=== PATIENT | male | born 2000 | race Caucasian/White ===

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

== ENCOUNTER 2020-06-25 18:59 | Emergency (ER) | payer OTHER, MEDICAID ==
[~2020-06-25] VITALS: Ht 193 cm; Wt 90.7 kg
[2020-06-25] MEDS ORDERED: ONDANSETRON 4 MG/2 ML (SDV) Z0FRAN IVP ONE (19:30)
[2020-06-25] MEDS ORDERED: PANTOPRAZOLE 40 MG (PROTONIX) VIAL IV ONE (19:30)
[2020-06-25] MEDS ORDERED: ACETAMINOPHEN 500 MG TAB (TYLENOL) PO ONE (19:30)
[2020-06-25] MEDS ORDERED: LACTATED RINGERS 1,000 ML IV ONE (19:30)
[2020-06-25] MEDS ORDERED: FAMOTIDINE 20MG/2ML IV (PEPCID) IVP ONE (19:30)
[2020-06-25 19:45] LABS: BASOPHILS % (AUTO) 1 % (0-10); EOSINOPHILS % (AUTO) 0 % (0-10); HEMATOCRIT 45 % (40-54); HEMOGLOBIN 15.5 g/dL (13.3-17.7); LYMPHOCYTES # (AUTO) 1.4 10^3/uL (1.0-4.0); LYMPHOCYTES % (AUTO) 29 % (12-44); MEAN CORPUSCULAR HEMOGLOBIN 29 pg (25-34); MEAN CORPUSCULAR HGB CONC 34 g/dL (32-36); MEAN CORPUSCULAR VOLUME 85 fL (80-99); MEAN PLATELET VOLUME 11.6 fL (9.0-12.2); MONOCYTES # (AUTO) 0.9 10^3/uL (0.0-1.0); MONOCYTES % (AUTO) 19 % (0-12); NEUTROPHILS # (AUTO) 2.5 10^3/uL (1.8-7.8); NEUTROPHILS % (AUTO) 50 % (42-75); PLATELET COUNT 155 10^3/uL (130-400); WHITE BLOOD COUNT 4.9 10^3/uL (4.3-11.0)
[2020-06-25] MEDS ORDERED: BENZONATATE 100 MG (TESSALON) CAPSULE PO ONE (19:45)
[2020-06-25 20:02] LABS: FIBRIN DEGRADATION PRODUCTS 0.32 UG/ML (0.00-0.49); INR 1.1 (0.8-1.4); PROTHROMBIN TIME PATIENT 14.1 SEC (12.2-14.7)
[2020-06-25 20:05] LABS: ALANINE AMINOTRANSFERASE 9 U/L (0-55); ALBUMIN 4.2 GM/DL (3.2-4.5); ALKALINE PHOSPHATASE 65 U/L (40-136); BILIRUBIN,TOTAL 0.3 MG/DL (0.1-1.0); BUN/CREATININE RATIO 8; CALCIUM 8.8 MG/DL (8.5-10.1); CARBON DIOXIDE 23 MMOL/L (21-32); CHLORIDE 107 MMOL/L (98-107); CREATININE SERUM 1.05 MG/DL (0.60-1.30); GFR ESTIMATED > 60; GLUCOSE 104 MG/DL (70-105); LIPASE 19 U/L (8-78); MAGNESIUM 2.3 MG/DL (1.6-2.4); POTASSIUM 3.9 MMOL/L (3.6-5.0); SODIUM 141 MMOL/L (135-145); TOTAL PROTEIN 6.8 GM/DL (6.4-8.2)
--- NOTE | 2020-06-25 20:07 | Diagnostic Imaging Report ---
Indication: Dyspnea and Covid infection Single AP view of the chest is obtained. COMPARISON: No previous study is available for comparison at this time. FINDINGS: Heart size and pulmonary vasculature are within normal limits, and the lungs are clear, bilaterally. IMPRESSION: Unremarkable chest. Dictated by: Dictated on workstation # [id number]
[2020-06-25 20:11] LABS: EOSINOPHILS % (MANUAL) 1 %; LYMPHOCYTES % (MANUAL) 26 %; MONOCYTES % (MANUAL) 13 %; NEUTROPHILS % (MANUAL) 60 %
[2020-06-25 20:12] LABS: RBC MORPH NORMAL
[2020-06-25] MEDS ORDERED: OMEP20TA7 PO (20:30)
[2020-06-25] MEDS ORDERED: BENZ100C18 PO (20:30)
[2020-06-25] MEDS ORDERED: ONDA4TAB11 SL (20:30)
[2020-06-25] MEDS ORDERED: RX-ONDANSETRON 4 MG ODT (ZOFRAN) PPK #4 SL STA (20:30)
--- NOTE | 2020-06-25 20:30 | ED General ---
General Chief Complaint: Cough/Cold/Flu Symptoms Stated Complaint: COVID POSITIVE/VOMITING BLOOD/SOB Source of Information: Patient Exam Limitations: No Limitations History of Present Illness Date Seen by Provider: Jun 25, 2020 Time Seen by Provider: 19:13 Initial Comments This 19-year-old young man presents to the emergency room with complaints of coughing up or vomiting blood. He has COVID-19 and has been symptomatic for about 6 days. He complains of shortness of breath. He reports noting streaks of blood in his emesis eating food his friend brought him tonight. Vital signs are stable. He is febrile at this time. He has a little bit of left upper quadrant discomfort. He reports cough and nausea disrupt his sleep. He also complains of a maculopapular rash on his upper extremities. He does not know what this is. His only new medication is a "mucus medicine". Allergies and Home Medications Allergies Coded Allergies: methylphenidate (Verified Allergy, Unknown, 08/10/17) Home Medications Atomoxetine HCl 80 Mg Capsule, 80 MG PO DAILY, (Reported) Benzonatate 100 Mg Capsule, 200 MG PO TID PRN for COUGH Prescribed by: SAMIR BARRAGAN on 06/25/202029 Cetirizine HCl 10 Mg Capsule, 10 MG PO DAILY, (Reported) Guanfacine HCl 1 Mg Tablet, 1 MG PO BID, (Reported) Lurasidone HCl 40 Mg Tablet, 40 MG PO HS, (Reported) Mometasone Furoate 17 Gm Naspr, 1 SPRAY NSEACH DAILY, (Reported) Omeprazole 20 Mg Tablet.dr, 20 MG PO BID Prescribed by: SAMIR BARRAGAN on 06/25/202029 Ondansetron 4 Mg Tab.rapdis, 4 MG SL Q4H PRN for NAUSEA/VOMITING Prescribed by: SAMIR BARRAGAN on 06/25/202029 Oxcarbazepine 600 Mg Tablet, 600 MG PO DAILY, (Reported) TAKES 600MG IN THE AM AND 900 MG AT HS Oxcarbazepine 600 Mg Tablet, 900 MG PO HS, (Reported) TAKES 600MG IN THE AM AND 900 MG AT HS Patient Home Medication List Home Medication List Reviewed: Yes Review of Systems Review of Systems Constitutional: no symptoms reported EENTM: no symptoms reported Respiratory: see HPI Cardiovascular: no symptoms reported Gastrointestinal: see HPI Genitourinary: no symptoms reported Musculoskeletal: no symptoms reported Skin: no symptoms reported Psychiatric/Neurological: No Symptoms Reported Hematologic/Lymphatic: No Symptoms Reported Immunological/Allergic: no symptoms reported Past Imdjvgz-Jaeerm-Tudegh Hx Past Med/Social Hx: Reviewed Nursing Past Med/Soc Hx Immunizations Up To Date PED Vaccines UTD: Yes Seasonal Allergies Seasonal Allergies: Yes Past Medical History Surgeries: Yes (T&A, POST OP TONSIL BLEED, HYDROCELE HERNIA REPAIR X2) Respiratory: No Cardiac: No Neurological: No Genitourinary: No Gastrointestinal: No Musculoskeletal: No Endocrine: No Tonsilitis Cancer: No Psychosocial: Yes ADD/ADHD, ODD, PTSD Integumentary: No Blood Disorders: No Family Medical History Autism G8 BROTHER FH: ADHD (attention deficit hyperactivity disorder) G8 BROTHER Headache disorder 19 MOTHER G8 SISTER Hypertension 19 MOTHER Physical Exam Vital Signs Vital Signs - First Documented 06/25/20 19:49 Temp 38.2 Capillary Refill : Height, Weight, BMI Height: 6'2.00" Weight: 217lbs. 9.0oz. [id number]; 27.9 BMI Method: General Appearance: No Apparent Distress, WD/WN HEENT: PERRL/EOMI, Normal ENT Inspection, Pharyngeal Erythema Neck: Normal Inspection, Non Tender Respiratory: Lungs Clear, No Accessory Muscle Use, No Respiratory Distress, Decreased Breath Sounds Cardiovascular: Regular Rate, Rhythm, No Murmur, Normal Peripheral Pulses Gastrointestinal: Normal Bowel Sounds, Soft, Tenderness (Slight in the left up per quadrant) Extremity: Normal Inspection, No Pedal Edema Neurologic/Psychiatric: Alert, Oriented x3, No Motor/Sensory Deficits, Normal Mood/Affect, tire setter II-XII Norm as Tested Skin: Normal Color, Warm/Dry Progress/Results/Core Measures Suspected Sepsis SIRS Temperature: Pulse: Respiratory Rate: Laboratory Tests 06/25/20 19:35: White Blood Count 4.9 Blood Pressure / Mean: Laboratory Tests 06/25/20 19:35: Creatinine 1.05, INR Comment 1.1, Platelet Count 155, Total Bilirubin 0.3 Results/Orders Lab Results Laboratory Tests Test 06/25/20 19:23 06/25/20 19:35 Range/Units Group A Streptococcus Screen NEGATIVE NEGATIVE White Blood Count 4.9 4.3-11.0 10^3/uL Red Blood Count 5.31 4.30-5.52 10^6/uL Hemoglobin 15.5 13.3-17.7 g/dL Hematocrit 45 40-54 % Mean Corpuscular Volume 85 80-99 fL Mean Corpuscular Hemoglobin 29 25-34 pg Mean Corpuscular Hemoglobin Concent 34 32-36 g/dL Red Cell Distribution Width 12.0 10.0-14.5 % Platelet Count 155 130-400 10^3/uL Mean Platelet Volume 11.6 9.0-12.2 fL Immature Granulocyte % (Auto) 0 % Neutrophils (%) (Auto) 50 42-75 % Lymphocytes (%) (Auto) 29 12-44 % Monocytes (%) (Auto) 19 H 0-12 % Eosinophils (%) (Auto) 0 0-10 % Basophils (%) (Auto) 1 0-10 % Neutrophils # (Auto) 2.5 1.8-7.8 10^3/uL Lymphocytes # (Auto) 1.4 1.0-4.0 10^3/uL Monocytes # (Auto) 0.9 0.0-1.0 10^3/uL Eosinophils # (Auto) 0.0 0.0-0.3 10^3/uL Basophils # (Auto) 0.0 0.0-0.1 10^3/uL Immature Granulocyte # (Auto) 0.0 0.0-0.1 10^3/uL Neutrophils % (Manual) 60 % Lymphocytes % (Manual) 26 % Monocytes % (Manual) 13 % Eosinophils % (Manual) 1 % Platelet Estimate Blood Morphology Comment NORMAL Prothrombin Time 14.1 12.2-14.7 SEC INR Comment 1.1 0.8-1.4 Activated Partial Thromboplast Time 36 H 24-35 SEC D-Dimer 0.32 0.00-0.49 UG/ML Sodium Level 141 135-145 MMOL/L Potassium Level 3.9 3.6-5.0 MMOL/L Chloride Level 107 98-107 MMOL/L Carbon Dioxide Level 23 21-32 MMOL/L Anion Gap 11 5-14 MMOL/L Blood Urea Nitrogen 8 7-18 MG/DL Creatinine 1.05 0.60-1.30 MG/DL Estimat Glomerular Filtration Rate > 60 BUN/Creatinine Ratio 8 Glucose Level 104 70-105 MG/DL Calcium Level 8.8 8.5-10.1 MG/DL Corrected Calcium 8.6 8.5-10.1 MG/DL Magnesium Level 2.3 1.6-2.4 MG/DL Total Bilirubin 0.3 0.1-1.0 MG/DL Aspartate Amino Transf (AST/SGOT) 15 5-34 U/L Alanine Aminotransferase (ALT/SGPT) 9 0-55 U/L Alkaline Phosphatase 65 40-136 U/L C-Reactive Protein High Sensitivity 1.38 H 0.00-0.50 MG/DL Total Protein 6.8 6.4-8.2 GM/DL Albumin 4.2 3.2-4.5 GM/DL Lipase 19 8-78 U/L Procalcitonin 0.04 <0.10 NG/ML My Orders Orders - SAMIR CHAVARRIA MD Cbc With Automated Diff (06/25/20 19:13) Comprehensive Metabolic Panel (06/25/20 19:13) Hs C Reactive Protein (06/25/20 19:13) Protime With Inr (06/25/20 19:13) Partial Thromboplastin Time (06/25/20 19:13) Chest 1 View, Ap/Pa Only (06/25/20 19:13) Ed Iv/Invasive Line Start (06/25/20 19:13) Pantoprazole Injection (Protonix Injecti (06/25/20 19:30) Famotidine Injection (Pepcid Injection) (06/25/20 19:30) Ondansetron Injection (Zofran Injectio (06/25/20 19:30) Acetaminophen Tablet (Tylenol Tablet) (06/25/20 19:30) Lactated Ringers (Lr 1000 Ml Iv Solution (06/25/20 19:30) Fibrin Degradation Products (06/25/20 19:29) Lipase (06/25/20 19:29) Magnesium (06/25/20 19:29) Procalcitonin (Pct) (06/25/20 19:29) Benzonatate Capsule (Tessalon Perles) (06/25/20 19:45) Manual Differential (06/25/20 19:35) Rapid Strep A Screen (06/25/20 19:51) Rx-Ondansetron Po (Rx-Zofran Po) (06/25/20 20:30) Medications Given in ED Current Medications Medications Dose Ordered Sig/Jeff Route Start Time Stop Time Status Last Admin Dose Admin Acetaminophen 1,000 mg ONCE ONCE PO 06/25/20 19:30 06/25/20 19:31 DC 06/25/20 19:49 1,000 MG Benzonatate 200 mg ONCE ONCE PO 06/25/20 19:45 06/25/20 19:46 DC 06/25/20 19:53 200 MG Famotidine 20 mg ONCE ONCE IVP 06/25/20 19:30 06/25/20 19:31 DC 06/25/20 19:42 20 MG Lactated Ringer's 1,000 ml @ 0 mls/hr Q0M ONCE IV 06/25/20 19:30 06/25/20 19:31 DC 06/25/20 19:39 1,000 MLS/HR Ondansetron HCl 8 mg ONCE ONCE IVP 06/25/20 19:30 06/25/20 19:31 DC 06/25/20 19:42 8 MG Pantoprazole 40 mg ONCE ONCE IV 06/25/20 19:30 06/25/20 19:31 DC 06/25/20 19:42 40 MG Vital Signs/I&O 06/25/20 19:49 Temp 38.2 Capillary Refill : Progress Note : Progress Note Patient was hydrated with a liter of IV fluid. Tylenol was given for fever. GI symptoms were treated with Protonix, Pepcid, and Zofran. There is no further emesis in the ER. Labs were unremarkable. Chest x-ray was also unremarkable. Rash may be a viral exanthem or, less likely, reaction to his "mucous medicine". I have advised him to take Benadryl if it is itchy and avoid the mucous medicine. Diagnostic Imaging Diagonstic Imaging: Xray Plain Films/CT/US/NM/MRI: chest Comments NAME: GIOVANNI GALLEGOS [facility] REC#: [id number] PT STATUS: REG ER : 2000 PHYSICIAN: SAMIR CHAVARRIA MD ADMIT DATE: 06/25/20/ER Signed Date of Exam:06/25/20 CHEST 1 VIEW, AP/PA ONLY Indication: Dyspnea and Covid infection Single AP view of the chest is obtained. COMPARISON: No previous study is available for comparison at this time. FINDINGS: Heart size and pulmonary vasculature are within normal limits, and the lungs are clear, bilaterally. IMPRESSION: Unremarkable chest. Dictated by: Dictated on workstation # [id number] Dict: 06/25/202005 Trans: 06/25/202005 [id number] Interpreted by: THIERRY CHENG MD Electronically signed by: THIERRY CHENG MD 06/25/202005 Reviewed: Reviewed by Me Departure Impression Primary Impression: COVID-19 Additional Impressions: Hematemesis Qualified Codes: K92.0 - Hematemesis Rash Disposition: HOME, SELF-CARE Condition: Improved Departure-Patient Inst. Decision time for Depature: 20:27 Referrals: MARY BARRAGAN MD (PCP/Family) Primary Care Physician Patient Instructions: COVID19 Add. Discharge Instructions: Start with a noncarbonated clear liquid diet and gradually advance your diet with small quantities of bland food as tolerated. Please drink plenty of clear liquids. Use omeprazole as prescribed twice daily for the next 2 weeks. Continue to take this medication even if you are feeling better. Please take Zofran (ondansetron) dissolved under the tongue every 4 hours as needed for nausea and vomiting. Call with questions or concerns. Return to the emergency room if you have worsening condition or if you continue to vomit blood. Follow-up with your primary care provider soon as you are off quarantine. Continue to follow health department instructions for quarantine. Avoid use of NSAID medications such as ibuprofen, Aleve, naproxen, etc. Instead take Tylenol (acetaminophen) up to 1000 mg every 6 hours as needed. All discharge instructions reviewed with patient and/or family. Voiced und erstanding. Scripts Benzonatate (TESSALON PERLES) 100 Mg Capsule 200 MG PO TID PRN for COUGH, #20 CAP Prov: SAMIR CHAVARRIA MD 06/25/20 Ondansetron (Ondansetron Odt) 4 Mg Tab.rapdis 4 MG SL Q4H PRN for NAUSEA/VOMITING, #10 TAB Prov: SAMIR CHAVARRIA MD 06/25/20 Omeprazole (Omeprazole) 20 Mg Tablet.dr 20 MG PO BID, #30 TAB Prov: SAMIR CHAVARRIA MD 06/25/20 SAMIR CHAVARRIA MD Jun 25, 2020 20:30
[2020-06-25 20:40] VITALS: BP 132/87
== END 2020-06-25 20:40 | disposition home or self-care (01) ==
LOC: EDUNIT# 18:59 → ER 19:03
DX: U07.1 COVID-19 (principal); K92.0 Hematemesis; F90.9 Attention-deficit hyperactivity disorder, unspecified type; Z82.49 Family history of ischemic heart disease and other diseases of the circulatory system
CPT/HCPCS: 36415; 71045; 80053; 83690; 83735; 84145; 85007; 85027; 85379; 85610; 85730; 86141; 87430

== ENCOUNTER 2020-07-05 10:42 | Emergency (ER) | payer OTHER, MEDICAID ==
[~2020-07-05] VITALS: Ht 193 cm; Wt 82.0 kg
[~2020-07-05 10:42] MED LIST changes: +BENZ100C18 PO; +OMEP20TA7 PO; +ONDA4TAB11 SL
--- NOTE | 2020-07-05 11:06 | ED Integumentary General ---
General Chief Complaint: Skin/Wound Problems Stated Complaint: R BREAST CYST Source: patient Exam Limitations: no limitations (BOWEN ARENAS) History of Present Illness Date Seen by Provider: Jul 05, 2020 Time Seen by Provider: 10:55 Initial Comments Pt here by private vehicle for a right breast cyst present for about a week getting larger over that time. He reports it is very painful and hurts when he takes deep breaths and rides in the car. He states that last night his friend tried to pop it with a needle and squeezing it, but they were unsuccessful. He states that a small amount of white puss did come out. He denies any fever, chills, cough, shortness of breath, or other symptoms. Timing/Duration: week Severity: moderate Location: torso (Right chest just lateral to nipple) Possible Cause: no cause identified Associated Symptoms: No fever; rash (redness around area) (BOWEN ARENAS) Allergies and Home Medications Allergies Coded Allergies: methylphenidate (Verified Allergy, Unknown, 08/10/17) Home Medications No Active Prescriptions or Reported Meds Patient Home Medication List Home Medication List Reviewed: Yes (TED PAREKH APRN) Review of Systems Review of Systems Constitutional: No chills, No fever EENTM: No nose congestion, No throat pain Respiratory: No cough, No dyspnea on exertion, No short of breath Cardiovascular: chest pain (at site of lesion); No edema Gastrointestinal: No abdominal pain, No constipation, No diarrhea, No nausea, No vomiting Genitourinary: No dysuria, No hematuria Musculoskeletal: No back pain, No muscle weakness Skin: change in color (Eryhtema around lesion), lesions (Right breast area) Psychiatric/Neurological: Denies Headache, Denies Numbness, Denies Paresthesia, Denies Tingling (BOWEN ARENAS) Past Flquxjm-Raniga-Ywvlyu Hx Patient Social History Alcohol Use: Denies Use Smoking Status: Never a Smoker Recent Hopitalizations: No (T&A 07/30/27) (BOWEN ARENAS) Immunizations Up To Date PED Vaccines UTD: Yes ([place]OW[place]NAS) Seasonal Allergies Seasonal Allergies: Yes (BOWEN ARENAS) Past Medical History Surgeries: Yes (T&A, POST OP TONSIL BLEED, HYDROCELE HERNIA REPAIR X2) Respiratory: No Cardiac: No Neurological: No Genitourinary: No Gastrointestinal: No Musculoskeletal: No Endocrine: No HEENT: No Tonsilitis Cancer: No Psychosocial: Yes ADD/ADHD, ODD, PTSD Integumentary: No Blood Disorders: No (BOWEN ARENAS) Family Medical History Autism G8 BROTHER FH: ADHD (attention deficit hyperactivity disorder) G8 BROTHER Headache disorder 19 MOTHER G8 SISTER Hypertension 19 MOTHER Physical Exam Vital Signs Vital Signs - First Documented 07/05/20 10:50 Temp 36.9 Pulse 87 Resp 18 B/P (MAP) 138/83 (TED PAREKH APRN) Vital Signs Capillary Refill : ([place]NAS) General Appearance: WD/WN, no apparent distress HEENT: PERRL/EOMI, pharynx normal Neck: non-tender, full range of motion Cardiovascular: normal peripheral pulses, regular rate, rhythm Respiratory: lungs clear, normal breath sounds, no respiratory distress Gastrointestinal: non tender, soft Back: normal inspection, no CVA tenderness, no vertebral tenderness Extremities: normal range of motion, non-tender, normal inspection, no pedal edema, no calf tenderness Neurologic/Psychiatric: no motor/sensory deficits, alert, normal mood/affect, oriented x 3 Skin: warm/dry, other (Erythema around R nipple area) Skin Problem Location: torso Skin Problem Character: abscess, erythema, warm ([place]NAS) Progress/Results/Core Measures Results/Orders My Orders Orders - TED PAREKH APRN Wound Culture (07/05/20 11:17) (TED PAREKH APRN) Vital Signs/I&O 07/05/20 10:50 Temp 36.9 Pulse 87 Resp 18 B/P (MAP) 138/83 (TED PAREKH APRN) Progress Progress Note : Progress Note 1100: Pt has abscess at right nipple area, plan I/D with antibiotics on discharge ([place]NAS) Departure Communication (Admissions) I have seen the patient as well, he has an abscess to the 9 o'clock position of the right breast at the areolar border. There are some minor cellulitis changes and swelling. He has no systemic symptoms. We did incision and drainage of this. The area was anesthetized with 1% lidocaine without epinephrine buffered with sodium bicarbonate in a 1:3 ratio. We then made an incision with 11 blade scalpel and a small amount of purulent almost sebaceous appearing material was expressed. Loculations were broken up with a blunt end of a Q-tip. Culture was collected. Covered with gauze. We will put him on doxycycline. (TED PAREKH APRN) Impression Primary Impression: Breast abscess Disposition: 01 HOME, SELF-CARE Condition: Stable Departure-Patient Inst. Decision time for Depature: 11:29 (TED PAREKH APRN) Referrals: MARY BARRAGAN MD (PCP/Family) Primary Care Physician Patient Instructions: Abscess Incision and Drainage (DC) Add. Discharge Instructions: 1. Tylenol and ibuprofen for pain. Change the dressing as it becomes soaked with blood. This will be a couple of times a day and will taper off over the next few days. Take the antibiotics as directed. They have been sent to [facility]. All discharge instructions reviewed with patient and/or family. Voiced understanding. Scripts Doxycycline Hyclate (Doxycycline Hyclate) 100 Mg Tablet 100 MG PO BID, #14 TAB 0 Refills Prov: TED PAREKH APRN 07/05/20 Copy Copies To 1: [facility]AN [facility] Jul 05, 2020 11:06 TED PAREKH APRN Jul 05, 2020 11:32
[2020-07-05] MEDS ORDERED: DOXY100T2 PO (11:30)
== END 2020-07-05 11:38 | disposition home or self-care (01) ==
LOC: EDUNIT# 10:42 → ER 10:43
DX: N61.1 Abscess of the breast and nipple (principal); Z88.8 Allergy status to other drugs, medicaments and biological substances; Z82.49 Family history of ischemic heart disease and other diseases of the circulatory system
CPT/HCPCS: 10060; 87070; 87077; 87205

== ENCOUNTER 2020-10-25 18:29 | Emergency (ER) | payer OTHER, MEDICAID ==
[~2020-10-25] VITALS: Ht 193 cm; Wt 93.4 kg
[~2020-10-25 18:29] MED LIST changes: +DOXY100T2 PO
--- NOTE | 2020-10-25 18:41 | ED Abdominal Pain ---
General Chief Complaint: Abdominal/GI Problems Stated Complaint: LLQ PAIN Source of Information: Patient Exam Limitations: No Limitations History of Present Illness Date Seen by Provider: October 25, 2020 Time Seen by Provider: 18:39 Initial Comments To ER by private vehicle with left lateral chest wall pain for about a month. He has had a cough and pain is worse with deep breathing. No shortness of breath. Timing/Duration: 1-2 Days Severity/Quality: Moderate Radiation: Other (Left lateral chest) Activities at Onset: None Associated Symptoms: Denies Symptoms Allergies and Home Medications Allergies Coded Allergies: methylphenidate (Verified Allergy, Unknown, 08/10/17) Home Medications Doxycycline Hyclate 100 Mg Tablet, 100 MG PO BID Prescribed by: TED PAERKH on 07/05/20 1130 Patient Home Medication List Home Medication List Reviewed: Yes Review of Systems Review of Systems Constitutional: see HPI; No chills, No fever EENTM: No Symptoms Reported Respiratory: See HPI, Cough Cardiovascular: No Symptoms Reported Gastrointestinal: No Symptoms Reported Genitourinary: No Symptoms Reported Musculoskeletal: no symptoms reported Skin: no symptoms reported Psychiatric/Neurological: No Symptoms Reported Endocrine: No Symptoms Reported Hematologic/Lymphatic: No Symptoms Reported Past Luwjhle-Vndkzq-Tzgudq Hx Patient Social History Recent Hopitalizations: No (T&A 07/30/27) Immunizations Up To Date PED Vaccines UTD: Yes Seasonal Allergies Seasonal Allergies: Yes Past Medical History Surgeries: Yes (T&A, POST OP TONSIL BLEED, HYDROCELE HERNIA REPAIR X2) Respiratory: No Cardiac: No Neurological: No Genitourinary: No Gastrointestinal: No Musculoskeletal: No Endocrine: No HEENT: No Tonsilitis Cancer: No Psychosocial: Yes ADD/ADHD, ODD, PTSD Integumentary: No Blood Disorders: No Family Medical History Autism G8 BROTHER FH: ADHD (attention deficit hyperactivity disorder) G8 BROTHER Headache disorder 19 MOTHER G8 SISTER Hypertension 19 MOTHER Physical Exam Vital Signs Vital Signs - First Documented 10/25/20 18:34 Temp 37.1 Pulse 96 Resp 17 B/P (MAP) 131/87 (102) O2 Delivery Room Air Capillary Refill : Height/Weight/BMI Height: 6'2.00" Weight: 217lbs. 9.0oz. 98.327888xs; 22.00 BMI Method: General Appearance: WD/WN, no apparent distress, other (Alert and oriented no distress. Heart rate is about 100. ) HEENT: PERRL/EOMI, normal ENT inspection Neck: non-tender, full range of motion Respiratory: normal breath sounds, no respiratory distress, no accessory muscle use Cardiovascular: regular rate, rhythm, no murmur Gastrointestinal: normal bowel sounds, non tender, soft Extremities: normal range of motion, non-tender Neurologic/Psychiatric: alert, normal mood/affect, oriented x 3 Skin: normal color, warm/dry Progress/Results/Core Measures Results/Orders Lab Results Laboratory Tests Test 10/25/20 18:44 10/25/20 18:52 Range/Units White Blood Count 7.1 4.3-11.0 10^3/uL Red Blood Count 5.65 H 4.30-5.52 10^6/uL Hemoglobin 16.5 13.3-17.7 g/dL Hematocrit 48 40-54 % Mean Corpuscular Volume 85 80-99 fL Mean Corpuscular Hemoglobin 29 25-34 pg Mean Corpuscular Hemoglobin Concent 34 32-36 g/dL Red Cell Distribution Width 11.7 10.0-14.5 % Platelet Count 245 130-400 10^3/uL Mean Platelet Volume 10.7 9.0-12.2 fL Immature Granulocyte % (Auto) 0 % Neutrophils (%) (Auto) 52 42-75 % Lymphocytes (%) (Auto) 39 12-44 % Monocytes (%) (Auto) 7 0-12 % Eosinophils (%) (Auto) 1 0-10 % Basophils (%) (Auto) 1 0-10 % Neutrophils # (Auto) 3.7 1.8-7.8 10^3/uL Lymphocytes # (Auto) 2.8 1.0-4.0 10^3/uL Monocytes # (Auto) 0.5 0.0-1.0 10^3/uL Eosinophils # (Auto) 0.1 0.0-0.3 10^3/uL Basophils # (Auto) 0.0 0.0-0.1 10^3/uL Immature Granulocyte # (Auto) 0.0 0.0-0.1 10^3/uL Urine Color YELLOW Urine Clarity CLEAR Urine pH 6.0 5-9 Urine Specific [place] 1.025 H 1.016-1.022 Urine Protein NEGATIVE NEGATIVE Urine Glucose (UA) NEGATIVE NEGATIVE Urine Ketones NEGATIVE NEGATIVE Urine Nitrite NEGATIVE NEGATIVE Urine Bilirubin NEGATIVE NEGATIVE Urine Urobilinogen 1.0 < = 1.0 MG/DL Urine Leukocyte Esterase NEGATIVE NEGATIVE Urine RBC (Auto) NEGATIVE NEGATIVE Urine RBC RARE /HPF Urine WBC 0-2 /HPF Urine Squamous Epithelial Cells NONE /HPF Urine Crystals NONE /LPF Urine Bacteria NEGATIVE /HPF Urine Casts NONE /LPF Urine Mucus MODERATE H /LPF Urine Culture Indicated NO My Orders Orders - TED PAREKH APRN Cbc With Automated Diff (10/25/20 18:37) Comprehensive Metabolic Panel (10/25/20 18:37) Ua Culture If Indicated (10/25/20 18:37) Ed Iv/Invasive Line Start (10/25/20 18:37) Hs C Reactive Protein (10/25/20 18:37) Chest Pa/Lat (2 View) (10/25/20 18:37) Ketorolac Injection (Toradol Injection) (10/25/20 18:45) Medications Given in ED Current Medications Medications Dose Ordered Sig/Jeff Route Start Time Stop Time Status Last Admin Dose Admin Ketorolac Tromethamine 15 mg ONCE ONCE IVP 10/25/20 18:45 10/25/20 18:46 DC 10/25/20 18:50 15 MG Vital Signs/I&O 10/25/20 18:34 Temp 37.1 Pulse 96 Resp 17 B/P (MAP) 131/87 (102) O2 Delivery Room Air Departure Impression Primary Impression: Pleuritic chest pain Disposition: HOME, SELF-CARE Condition: Stable Departure-Patient Inst. Decision time for Depature: 19:21 Referrals: MARY BARRAGAN MD (PCP/Family) Primary Care Physician Patient Instructions: Pleuritic Chest Pain (DC) Add. Discharge Instructions: 1. Use ibuprofen and naproxen for pain control. Follow-up with your regular doctor this week for recheck. All discharge instructions reviewed with patient and/or family. Voiced understanding. TED PAREKH APRN October 25, 2020 18:41
[2020-10-25] MEDS ORDERED: KETOROLAC 30 MG/ML VIAL IVP ONE (18:45)
[2020-10-25 18:55] LABS: BASOPHILS % (AUTO) 1 % (0-10); EOSINOPHILS # (AUTO) 0.1 10^3/uL (0.0-0.3); EOSINOPHILS % (AUTO) 1 % (0-10); HEMATOCRIT 48 % (40-54); HEMOGLOBIN 16.5 g/dL (13.3-17.7); LYMPHOCYTES # (AUTO) 2.8 10^3/uL (1.0-4.0); LYMPHOCYTES % (AUTO) 39 % (12-44); MEAN CORPUSCULAR HEMOGLOBIN 29 pg (25-34); MEAN CORPUSCULAR HGB CONC 34 g/dL (32-36); MEAN CORPUSCULAR VOLUME 85 fL (80-99); MEAN PLATELET VOLUME 10.7 fL (9.0-12.2); MONOCYTES # (AUTO) 0.5 10^3/uL (0.0-1.0); MONOCYTES % (AUTO) 7 % (0-12); NEUTROPHILS # (AUTO) 3.7 10^3/uL (1.8-7.8); NEUTROPHILS % (AUTO) 52 % (42-75); PLATELET COUNT 245 10^3/uL (130-400); WHITE BLOOD COUNT 7.1 10^3/uL (4.3-11.0)
[2020-10-25 19:00] LABS: BILIRUBIN,URINE NEGATIVE (NEGATIVE); CLARITY,URINE CLEAR; COLOR,URINE YELLOW; GLUCOSE, URINE (UA) NEGATIVE (NEGATIVE); KETONES,URINE NEGATIVE (NEGATIVE); LEUKOCYTE ESTERASE ,URINE NEGATIVE (NEGATIVE); NITRITE,URINE NEGATIVE (NEGATIVE); PROTEIN,URINE NEGATIVE (NEGATIVE)
[2020-10-25 19:07] LABS: BACTERIA,URINE NEGATIVE /HPF; RBC,URINE RARE /HPF; WBC,URINE 0-2 /HPF
--- NOTE | 2020-10-25 19:07 | Diagnostic Imaging Report ---
CHEST PA/LAT (2 VIEW) Indication: Chest pain Comparison: 06/25/2020 Findings: No pulmonary mass or consolidation. No pleural effusion or pneumothorax. Normal heart size and mediastinal contours. Impression: No acute cardiopulmonary process. Dictated by: Dictated on workstation # [id number]
[2020-10-25 19:21] LABS: ALBUMIN 4.6 GM/DL (3.2-4.5); BILIRUBIN,TOTAL 0.6 MG/DL (0.1-1.0); BUN/CREATININE RATIO 11; CARBON DIOXIDE 29 MMOL/L (21-32); CHLORIDE 104 MMOL/L (98-107); CREATININE SERUM 1.15 MG/DL (0.60-1.30); GFR ESTIMATED > 60; GLUCOSE 98 MG/DL (70-105); POTASSIUM 3.7 MMOL/L (3.6-5.0); SODIUM 141 MMOL/L (135-145); TOTAL PROTEIN 7.6 GM/DL (6.4-8.2)
[2020-10-25 19:43] VITALS: BP 124/77
[2020-10-25 19:55] LABS: ALKALINE PHOSPHATASE 65 U/L (40-136)
[2020-10-25 19:59] LABS: ALANINE AMINOTRANSFERASE 8 U/L (0-55)
== END 2020-10-25 19:43 | disposition home or self-care (01) ==
LOC: EDUNIT# 18:29 → ER 18:31
DX: R07.81 Pleurodynia (principal)
CPT/HCPCS: 36415; 71046; 80053; 81000; 85025; 86141

== ENCOUNTER → 2020-11-09 | Outpatient (CLI) | payer OTHER ==
--- NOTE | 2020-11-09 13:00 | Diagnostic Imaging Report ---
Indication: Back pain Thoracic spine AP and lateral views of the thoracic spine shows normal vertebral body height and alignment. Disc spaces are normal. There is no appreciable scoliotic curvature of the thoracic spine. IMPRESSION: Negative thoracic spine. Dictated by: Dictated on workstation # [id number]
--- NOTE | 2020-11-09 13:12 | Diagnostic Imaging Report ---
INDICATION: Low back pain Lumbar spine AP and lateral views of lumbar spine shows normal vertebral body height and alignment. Disc spaces are unremarkable. IMPRESSION: Negative lumbar spine. Dictated by: Dictated on workstation # [id number]
== END ==
LOC: RAD 12:18
PROVIDERS: ATTEND Anesthesiology Pain Medicine
DX: Z02.71 Encounter for disability determination (principal); M54.5 Low back pain
CPT/HCPCS: 72072; 72100

== ENCOUNTER 2020-11-30 23:27 | Emergency (ER) | payer OTHER, MEDICAID ==
[~2020-11-30] VITALS: Ht 193 cm; Wt 90.0 kg
--- NOTE | 2020-12-01 00:28 | ED General ---
General Chief Complaint: General Problems/Pain Stated Complaint: FEVER,SOB,TIRED,THINKS HE HAS COVID Nursing Triage Note: Pt ambulatory into ER with complaint of fatigue since yesterday. pt states that he had covid in July and he thinks he might have it again. Pt denies contact with positive patient, but states that this is how it felt when he had it last time. Source of Information: Patient Exam Limitations: No Limitations History of Present Illness Date Seen by Provider: Nov 30, 2020 Time Seen by Provider: 23:40 Initial Comments Patient is a 20-year-old male who presents to the emergency room with concern for Covid infection. Patient complains of headache, some mild nausea, generally not feeling well with sinus congestion and nasal drainage. He has had a little bit of a cough. Is not short of breath has not lost taste or smell. No known sick contacts with Covid. He is not vaccinated. He has had some diarrhea and increased urinary frequency. He denies burning with urination or concern for STI. No rashes. All other review of systems reviewed and negative except as stated above. Timing/Duration: 1-2 Days Severity: Moderate Associated Systoms: Cough, Nausea/Vomiting, Other (congestion) Allergies and Home Medications Allergies Coded Allergies: methylphenidate (Verified Allergy, Unknown, 08/10/17) Home Medications Doxycycline Hyclate 100 Mg Tablet, 100 MG PO BID Prescribed by: TED PAREKH on 07/05/20 1130 Patient Home Medication List Home Medication List Reviewed: Yes Review of Systems Review of Systems Constitutional: see HPI, chills, diaphoresis EENTM: nose congestion, throat pain Respiratory: cough Cardiovascular: no symptoms reported Gastrointestinal: diarrhea, nausea, vomiting (x1) Genitourinary: frequency Musculoskeletal: muscle cramps Skin: no symptoms reported All Other Systems Reviewed Negative Unless Noted: Yes Past Hbxtlon-Quzhdh-Vzpvmj Hx Patient Social History Tobacco Use?: No Use of E-Cig and/or Vaping dev: No Substance use?: No Alcohol Use?: No Pt feels they are or have been: No Immunizations Up To Date PED Vaccines UTD: Yes Influenza Vaccine Up-to-Date: No; Not Current Seasonal Allergies Seasonal Allergies: Yes Past Medical History Surgeries: Yes (T&A, POST OP TONSIL BLEED, HYDROCELE HERNIA REPAIR X2) Respiratory: No Cardiac: No Neurological: No Genitourinary: No Gastrointestinal: No Musculoskeletal: No Endocrine: No HEENT: No Tonsilitis Cancer: No Psychosocial: Yes ADD/ADHD, ODD, PTSD Integumentary: No Blood Disorders: No Family Medical History Autism G8 BROTHER FH: ADHD (attention deficit hyperactivity disorder) G8 BROTHER Headache disorder 19 MOTHER G8 SISTER Hypertension 19 MOTHER Physical Exam Vital Signs Vital Signs - First Documented 11/30/20 23:49 Temp 36.7 Pulse 84 Resp 16 B/P (MAP) 139/89 (106) Pulse Ox 98 O2 Delivery Room Air Capillary Refill : Less Than 3 Seconds Height, Weight, BMI Height: 6'2.00" Weight: 217lbs. 9.0oz. 98.897092yd; 24.00 BMI Method: General Appearance: No Apparent Distress, WD/WN HEENT: Normal ENT Inspection Neck: Full Range of Motion, Normal Inspection, Non Tender, Supple Respiratory: Lungs Clear, Normal Breath Sounds, No Accessory Muscle Use, No Respiratory Distress Cardiovascular: Regular Rate, Rhythm Gastrointestinal: Non Tender, Soft Extremity: Normal Inspection Neurologic/Psychiatric: Alert, Oriented x3, No Motor/Sensory Deficits, Normal Mood/Affect Skin: Normal Color, Warm/Dry Progress/Results/Core Measures Suspected Sepsis SIRS Temperature: Pulse: 84 Respiratory Rate: 16 Blood Pressure 139 /89 Mean: 106 Results/Orders Lab Results Laboratory Tests Test 11/30/20 23:41 Range/Units SARS-CoV-2 RNA (RT-PCR) Not Detected Not Detecte My Orders Orders - ANA DUONG MD Covid 19 Inhouse Test (11/30/20 23:33) Vital Signs/I&O 11/30/20 23:49 Temp 36.7 Pulse 84 Resp 16 B/P (MAP) 139/89 (106) Pulse Ox 98 O2 Delivery Room Air Capillary Refill : Less Than 3 Seconds Blood Pressure Mean: 106 Progress Note : Time: 00:49 Progress Note Patient's Covid test is negative. He is treated in the emergency department with with 30 mg of Toradol IM and 4 mg of ODT Zofran. Patient will be sent home with some Zofran. Patient looks well his vitals are stable. He is concerned that he might of gotten food poisoning as he and his girlfriend both ate problems recently. I discussed treatment with him which includes plenty of fluids and controlling his nausea and vomiting. He verbalizes understanding. All questions are sought and answered. Patient is stable for discharge. Departure Impression Primary Impression: Viral syndrome Disposition: 01 HOME, SELF-CARE Condition: Stable Departure-Patient Inst. Decision time for Depature: 00:50 Referrals: MARY BARRAGAN MD (PCP/Family) Primary Care Physician Patient Instructions: Viral Syndrome (DC) Add. Discharge Instructions: Drink plenty of fluids to stay well-hydrated. Take Tylenol, extra strength, 2 pills every 4-6 hours as needed for headache, body ache. I have given you some Zofran for home you can take this every 6-8 hours as needed for nausea and vomiting. Follow-up with your primary care provider. Return to the emergency room for any new, concerning or emergent complaints. ANA DUONG MD Dec 01, 2020 00:27
[2020-12-01] MEDS ORDERED: RX-ONDANSETRON 4 MG ODT (ZOFRAN) PPK #4 PO STA (00:51)
[2020-12-01 00:55] VITALS: BP 128/78
[2020-12-01] MEDS ORDERED: ONDANSETRON 4 MG (ZOFRAN) ORAL DISSOLVE TAB PO ONE (01:00)
[2020-12-01] MEDS ORDERED: KETOROLAC 60 MG/2 ML VIAL IM ONE (01:00)
== END 2020-12-01 00:55 | disposition home or self-care (01) ==
LOC: EDUNIT# 23:27 → ER 23:31
DX: B34.9 Viral infection, unspecified (principal); Z20.822 Contact with and (suspected) exposure to COVID-19
CPT/HCPCS: 87636; 96372; 99284

== ENCOUNTER 2021-02-08 09:46 | Emergency (ER) | payer OTHER, MEDICAID ==
[~2021-02-08] VITALS: Ht 193 cm; Wt 86.0 kg
--- NOTE | 2021-02-08 10:10 | ED Cough/URI ---
General Chief Complaint: COVID19 Suspect/Confirmed Stated Complaint: N/V,COUGH,CONGESTION Nursing Triage Note: ARRIVED VIA AMB TO ROOM 09. COMPLAINS OF COUGH AND SORE THROAT SINCE LAST SATURDAY. HX OF COVID AND STREP IN 2019. Source: patient Exam Limitations: no limitations History of Present Illness Date Seen by Provider: Feb 08, 2021 Time Seen by Provider: 09:55 Initial Comments Patient is a 20-year-old male who presents to the emergency room with multiple complaints. Patient states for the last 5 days he has had fevers, chills, "shaking", sore throat, nausea, vomiting, diarrhea. He describes palpitations. He is concerned that he may have either Covid or strep. Patient states that he had Covid in 2019 but cannot remember when. He is not Covid vaccinated because he heard "it makes your brain bleed and makes you sick". Patient states he is taken Tylenol for his fever that he says has been up to as high as 103 but his last dose was "a couple of days ago". No cough but he feels a little short of breath. He states he is supposed to be on medications for ADHD but does not take them. He also states that he is allergic to medication but he cannot recall what it is. States that his workplace sent him here for Covid test today All other review of systems reviewed and negative except as stated. Timing/Duration: week Associated Symptoms: cough, fever/chills, lightheadedness, nasal congestion, sore throat Allergies and Home Medications Allergies Coded Allergies: methylphenidate (Verified Allergy, Unknown, 08/10/17) Patient Home Medication List Home Medication List Reviewed: Yes No Active Prescriptions or Reported Meds Review of Systems Review of Systems Constitutional: see HPI, fever, malaise EENTM: nose congestion, throat pain Respiratory: no symptoms reported Cardiovascular: palpitations Gastrointestinal: diarrhea, nausea, vomiting Genitourinary: no symptoms reported Musculoskeletal: muscle cramps Skin: no symptoms reported All Other Systems Reviewed Negative Unless Noted: Yes Past Eqgqrxg-Saiwyw-Qkjepq Hx Patient Social History Smoking Status: Never a Smoker Substance use?: No Alcohol Use?: No Immunizations Up To Date PED Vaccines UTD: Yes Seasonal Allergies Seasonal Allergies: Yes Past Medical History Surgeries: Yes (T&A, POST OP TONSIL BLEED, HYDROCELE HERNIA REPAIR X2) Respiratory: No Cardiac: No Neurological: No Genitourinary: No Gastrointestinal: No Musculoskeletal: No Endocrine: No HEENT: No Tonsilitis Cancer: No Psychosocial: Yes ADD/ADHD, ODD, PTSD Integumentary: No Blood Disorders: No Family Medical History Autism G8 BROTHER FH: ADHD (attention deficit hyperactivity disorder) G8 BROTHER Headache disorder 19 MOTHER G8 SISTER Hypertension 19 MOTHER Physical Exam Vital Signs - First Documented 02/08/21 09:50 Temp 36.8 Pulse 78 Resp 16 B/P (MAP) 131/86 (101) Pulse Ox 99 O2 Delivery Room Air Capillary Refill : Less Than 3 Seconds Height: 6'2.00" Weight: 217lbs. 9.0oz. 98.363516kk; 23.00 BMI Method: General Appearance: WD/WN, no apparent distress Eyes: Bilateral Eye Normal Inspection, Bilateral Eye PERRL, Bilateral Eye EOMI HEENT: PERRL/EOMI, TMs normal, pharyngeal erythema (Mild) Neck: non-tender, full range of motion, supple Respiratory: lungs clear, normal breath sounds, no respiratory distress, no accessory muscle use Cardiovascular: regular rate, rhythm Extremities: normal inspection Neurologic/Psychiatric: alert, normal mood/affect, oriented x 3 Skin: normal color, warm/dry Progress/Results/Core Measures Suspected Sepsis SIRS Temperature: Pulse: 78 Respiratory Rate: 16 Blood Pressure 131 /86 Mean: 101 Results/Orders Lab Results Laboratory Tests Test 02/08/21 10:00 Range/Units Influenza Type A (RT-PCR) Not Detected Not Detecte Influenza Type B (RT-PCR) Not Detected Not Detecte SARS-CoV-2 RNA (RT-PCR) Not Detected Not Detecte Group A Streptococcus Screen NEGATIVE NEGATIVE My Orders Orders - ANA DUONG MD Covid 19 Inhouse Test (02/08/21 10:04) Rapid Strep A Screen (02/08/21 10:04) Influenza A And B By Pcr (02/08/21 10:04) Isolation Central Supply Req (02/08/21 10:04) Acetaminophen Tablet (Tylenol Tablet) (02/08/21 11:15) Vital Signs/I&O 02/08/21 09:50 Temp 36.8 Pulse 78 Resp 16 B/P (MAP) 131/86 (101) Pulse Ox 99 O2 Delivery Room Air Capillary Refill : Less Than 3 Seconds Blood Pressure Mean: 101 Departure Impression Primary Impression: Viral syndrome Disposition: 01 HOME, SELF-CARE Condition: Stable Departure-Patient Inst. Decision time for Depature: 10:08 Referrals: MARY BARRAGAN MD (PCP/Family) Primary Care Physician Patient Instructions: Viral Syndrome (DC) Add. Discharge Instructions: Drink plenty of fluids to stay well-hydrated. Take tree-zxu-socvruj ibuprofen, 3 tablets which is 600 mg every 6-8 hours as needed for headache, fever, body aches. Warm salt water gargles will help with throat pain. Follow-up with the primary care physician. Return to the emergency room for any high fevers especially with rash, headache, persistent vomiting or any other emergent concerning symptoms. Scripts No Active Prescriptions or Reported Meds Work/School Note: Work Release Form Date Seen in the Emergency Department: Feb 08, 2021 Return to Work: Feb 08, 2021 ANA DUONG MD Feb 08, 2021 10:10
[2021-02-08] MEDS ORDERED: ACETAMINOPHEN 500 MG TAB (TYLENOL) PO ONE (11:15)
[2021-02-08 11:16] VITALS: BP 106/70
== END 2021-02-08 11:16 | disposition home or self-care (01) ==
LOC: EDUNIT# 09:46 → ER 09:48
DX: B34.9 Viral infection, unspecified (principal); Z20.822 Contact with and (suspected) exposure to COVID-19; Z86.16 Personal history of COVID-19
CPT/HCPCS: 87430; 87636

== ENCOUNTER 2021-07-17 21:26 | Emergency (ER) | payer OTHER, MEDICAID ==
[~2021-07-17] VITALS: Ht 193 cm; Wt 100.0 kg
[~2021-07-17 21:26] MED LIST changes: -MMT17NA NSEACH; +MOME17SP4 NSEACH
[2021-07-17] MEDS ORDERED: IBUPROFEN 600 MG (MOTRIN) TAB PO ONE (21:45)
--- NOTE | 2021-07-17 21:46 | ED Upper Extremity ---
General Chief Complaint: Upper Extremity Stated Complaint: HIT A WALL HAND HURT, SUICIDAL Source: patient Exam Limitations: no limitations History of Present Illness Date Seen by Provider: Jul 17, 2021 Time Seen by Provider: 21:44 Initial Comments Patient is a 20-year-old male who presents ED with left hand pain. Patient states him and his girlfriend had a argument this evening. Patient punched a wall with his hand going through the wall. Abrasions to the hand. Up-to-date on status for the past 5 years. He reports swelling. Pain with movement worsening around the third MCP joint. No fever, chills, nausea vomiting diarrhea. Allergies and Home Medications Allergies Coded Allergies: methylphenidate (Verified Allergy, Unknown, 08/10/17) Patient Home Medication List Home Medication List Reviewed: Yes Naproxen (Naproxen) 500 Mg Tablet.dr, 500 MG PO BID Prescribed by: CARTER CABRERA on 07/17/212204 Review of Systems Constitutional: No chills, No diaphoresis EENTM: No blurred vision, No double vision, No dental problems, No throat pain, No throat swelling Respiratory: No cough Cardiovascular: No chest pain Gastrointestinal: No abdominal pain, No dysphagia, No nausea, No vomiting Genitourinary: No decreased output, No discharge Musculoskeletal: No back pain, No joint pain Skin: No change in color, No change in hair/nails All Other Systems Reviewed Negative Unless Noted: Yes Past Xgppcli-Fiyifa-Hdkqbp Hx Immunizations Up To Date PED Vaccines UTD: Yes Seasonal Allergies Seasonal Allergies: Yes Past Medical History Surgeries: Yes (T&A, POST OP TONSIL BLEED, HYDROCELE HERNIA REPAIR X2) Respiratory: No Cardiac: No Neurological: No Genitourinary: No Gastrointestinal: No Musculoskeletal: No Endocrine: No HEENT: No Tonsilitis Cancer: No Psychosocial: Yes ADD/ADHD, ODD, PTSD Integumentary: No Blood Disorders: No Family Medical History Autism G8 BROTHER FH: ADHD (attention deficit hyperactivity disorder) G8 BROTHER Headache disorder 19 MOTHER G8 SISTER Hypertension 19 MOTHER Physical Exam Vital Signs Vital Signs - First Documented 07/17/21 22:18 Pulse 80 Resp 16 B/P (MAP) 134/69 (90) Pulse Ox 98 O2 Delivery Room Air Capillary Refill : Height, Weight, BMI Height: 6'2.00" Weight: 217lbs. 9.0oz. 98.098771kg; 23.00 BMI Method: General Appearance: WD/WN, no apparent distress HEENT: PERRL/EOMI, normal ENT inspection, TMs normal, pharynx normal Neck: non-tender, full range of motion, supple, normal inspection Cardiovascular: regular rate, rhythm, no edema, no JVD Respiratory: chest non-tender, lungs clear, normal breath sounds, no respiratory distress Gastrointestinal: normal bowel sounds, non tender, soft, no organomegaly Back: normal inspection, no CVA tenderness Shoulder: non-tender Wrist: Yes normal inspection, Yes non-tender, Yes no evidence of injury, Yes normal ROM Hand: Left, abrasions, bone tenderness, swelling 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 Abrasions noted. Last tetanus shot within the past few years. Ice was applied. Was given ibuprofen. Will discharge anti-inflammatories. Orthopedic follow-up in 7 to 10 days. Patient has no other current complaints. No current suicidal or homicidal thoughts. Impression Primary Impression: Hand pain Disposition: HOME, SELF-CARE Condition: Stable Departure-Patient Inst. Decision time for Depature: 22:04 Referrals: MARY BARRAGAN MD (PCP/Family) Primary Care Physician ARTURO TOTH MD Patient Instructions: Hand Pain Scripts Naproxen (Naproxen) 500 Mg Tablet. 500 MG PO BID, #20 TAB Prov: ELIANE LIU 07/17/21 Work/School Note: Work Release Form Date Seen in the Emergency Department: Jul 17, 2021 Return to Work: Jul 19, 2021 ELIANE LIU Jul 17, 2021 21:46
--- NOTE | 2021-07-17 21:58 | Diagnostic Imaging Report ---
Indication: Left hand injury 3 views of the left hand show no fracture, dislocation or other acute abnormalities. IMPRESSION: Negative left hand Dictated by: Dictated on workstation # [id number]
[2021-07-17] MEDS ORDERED: NAPR500T8 PO (22:05)
[2021-07-17 22:34] VITALS: BP 134/69
== END 2021-07-17 22:35 | disposition home or self-care (01) ==
LOC: EDUNIT# 21:26 → ER 21:31
DX: S60.512A Abrasion of left hand, initial encounter (principal); W22.01XA Walked into wall, initial encounter
CPT/HCPCS: 73130

== ENCOUNTER 2022-12-25 18:51 | Emergency (ER) | payer OTHER, MEDICAID ==
[~2022-12-25] VITALS: Ht 195 cm; Wt 104.0 kg
[~2022-12-25 18:51] MED LIST changes: +LURA40TA2 PO; -LURA40TA3 PO; +NAPR500T8 PO; +OMEP20TA56 PO; -OMEP20TA7 PO
[2022-12-25 18:59] VITALS: BP 132/83
--- NOTE | 2022-12-25 21:09 | ED Integumentary General ---
General Chief Complaint: Bite-Animal/Human/Insect Stated Complaint: STUNG|ALLERGIC REACTION Nursing Triage Note: bee sting to right ear saturday12/24/22 reports swelling increased today. Source: patient Exam Limitations: no limitations History of Present Illness Date Seen by Provider: Dec 25, 2022 Time Seen by Provider: 20:00 Initial Comments Patient is a 22-year-old male who presents to ED with right ear pain. Patient states on Saturday was stung by a wasp. This was witnessed. Had some pain and swelling but states the swelling increase today. Noted some swelling around the right ear. Patient states he is highly allergic to bee and wasp stings. Denies history of respiratory distress. Patient denies of any sore throat difficulty swallowing, cough. Patient denies taking any medication for this sting. Denies fever, headache, dizziness, nausea, vomiting, diarrhea, Abdominal pain, shortness of breath, throat pain. Allergies and Home Medications Allergies Coded Allergies: methylphenidate (Verified Allergy, Unknown, 08/10/17) Patient Home Medication List Home Medication List Reviewed: Yes Naproxen (Naproxen) 500 Mg Tablet.dr, 500 MG PO BID Prescribed by: CARTER CABRERA on 07/17/219 Review of Systems Review of Systems Constitutional: No chills, No diaphoresis EENTM: ear pain; No blurred vision, No double vision Respiratory: No cough, No dyspnea on exertion Cardiovascular: No chest pain Gastrointestinal: No abdominal pain, No diarrhea, No nausea, No vomiting Genitourinary: No decreased output, No discharge, No dysuria, No frequency Musculoskeletal: No back pain, No joint pain Skin: change in color; No change in hair/nails All Other Systems Reviewed Negative Unless Noted: Yes Past Ojhwcha-Funtnk-Gfuqsk Hx Patient Social History Tobacco Use?: No Substance use?: No Alcohol Use?: No Pt feels they are or have been: No Immunizations Up To Date PED Vaccines UTD: Yes First/Initial COVID19 Vaccinat: NA Seasonal Allergies Seasonal Allergies: Yes Past Medical History Surgery/Hospitalization HX: "HEART ISSUES" HERNIA REPAIR X3, T/A, SUICIDIAL Surgeries: Yes (T&A, POST OP TONSIL BLEED, HYDROCELE HERNIA REPAIR X2) Respiratory: No Cardiac: No Neurological: No Genitourinary: No Gastrointestinal: No Musculoskeletal: No Endocrine: No HEENT: No Tonsilitis Cancer: No Psychosocial: Yes ADD/ADHD, ODD, PTSD Integumentary: No Blood Disorders: No Family Medical History Autism G8 BROTHER FH: ADHD (attention deficit hyperactivity disorder) G8 BROTHER Headache disorder 19 MOTHER G8 SISTER Hypertension 19 MOTHER Physical Exam Vital Signs Vital Signs - First Documented 12/25/22 18:59 Temp 37.1 Pulse 87 Resp 16 B/P (MAP) 132/83 (99) Pulse Ox 98 O2 Delivery Room Air Capillary Refill : Less Than 3 Seconds General Appearance: WD/WN, no apparent distress HEENT: other (Right ear with swelling mild erythema. Swelling above the right ear. Mild tenderness. 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, no motor/sensory deficits, alert, normal mood/affect, oriented x 3 Skin: other (Edematous right ear and around the ear ) Progress/Results/Core Measures Results/Orders My Orders Orders - ELIANE LIU Diphenhydramine Tablet (Benadryl Tablet) (12/25/22 21:15) Famotidine Tablet (Pepcid Tablet) (12/25/22 21:15) Prednisone Tablet (Deltasone Tablet) (12/25/22 21:15) Prednisone Tablet (Deltasone Tablet) (12/25/22 21:15) Vital Signs/I&O 12/25/22 18:59 Temp 37.1 Pulse 87 Resp 16 B/P (MAP) 132/83 (99) Pulse Ox 98 O2 Delivery Room Air Blood Pressure Mean: 99 Departure Communication (PCP) Reviewed previous ER visits, H&P, lab testing. Differential diagnosis, localized reaction, wild sting, cellulitis. On exam swelling redness of the right outer ear and around the ear. Right TM clear. No difficulty breathing shortness of breath. Vital signs stable. Concern for localized reaction. History of severe reaction to bee or wasp thing. Patient was given oral prednisone 50mg, Benadryl 25mg and Pepcid 20mg. Patient appears in no acute distress. Does not appear cellulitic. No fluctuant mass. Will discharge with prednisone for the next 5 days as well as Benadryl. Continue with Pepcid as well. Recommend follow-up your PCP 1 to 2 days for reevaluation. If increased redness, swelling, difficulty breathing to return back to ED. Impression Primary Impression: Wasp sting Disposition: HOME, SELF-CARE Condition: Stable Departure-Patient Inst. Decision time for Depature: 20:09 Referrals: MARY BARRAGAN MD (PCP/Family) Primary Care Physician Patient Instructions: Insect bites and stings Add. Discharge Instructions: Take prednisone, Benadryl Pepcid as prescribed. If increased redness or swelling to return back to ED., Difficulty breathing, throat pain to return back to ED. Follow-up your PCP in 2 days All discharge instructions reviewed with patient and/or family. Voiced understanding. ELIANE LIU Dec 25, 2022 21:09
[2022-12-25] MEDS ORDERED: FAMOTIDINE 20 MG (PEPCID) TABLET PO ONE (21:15)
[2022-12-25] MEDS ORDERED: predniSONE 20 MG TAB PO ONE (21:15)
[2022-12-25] MEDS ORDERED: predniSONE 10 MG TAB PO ONE (21:15)
[2022-12-25] MEDS ORDERED: diphenhydrAMINE 25 MG TAB (BENADRYL) PO ONE (21:15)
== END 2022-12-25 19:40 | disposition home or self-care (01) ==
LOC: ER 18:51 → EDUNIT# 19:19 → ER 19:40
DX: T63.461A Toxic effect of venom of wasps, accidental (unintentional), initial encounter (principal)
CPT/HCPCS: 99283